=== PATIENT | female | born 1975 | race Two or more races ===

== ENCOUNTER 2024-11-18 11:05 | Day surgery (SDC) | payer MEDICAID, SELFPAY ==
[2024-11-17 14:42] VITALS: BMI 31.2
[2024-11-17 18:01] LABS: HCG Qualitative,Urine Negative
[2024-11-18] VITALS (14 sets, daily range): BP systolic 103–135; BP diastolic 58–92; PULSE 60–90; RESP 14–22; TEMP 36.6–36.7; O2SAT 92–100; BMI 30.8
[2024-11-18] MEDS: SODIUM CHLORIDE 0.9% 500 ML 500 ML 20 ML IV (13:55)
[2024-11-18] MEDS: DiphenhydrAMINE INJ 50 MG/ML VIAL 25 MG IV (14:03)
[2024-11-18] MEDS: fentaNYL CIT INJ 50 mCg/ML AMP 2ML (ASD USE ONLY) 25 MCG IV (14:20)
[2024-11-18] MEDS: MIDAZOLAM INJ 1 MG/ML VIAL 2 ML (ASD USE ONLY) 2 MG IV (14:20)
== END 2024-11-18 15:15 | disposition home or self-care (01) ==
PROVIDERS: PCP Family Medicine; Referring Provider Internal Medicine Gastroenterology; Visit Provider Internal Medicine Gastroenterology
PROC: (CPT 43239; principal; 2024-11-18 11:30)
PROC: 0DBE8ZX Excision of Large Intestine, Via Natural or Artificial Opening Endoscopic, Diagnostic (ICD-10-PCS; CPT 45380; 2024-11-18 11:30)
DX: K64.1 Second degree hemorrhoids (principal); K29.50 Unspecified chronic gastritis without bleeding; K31.89 Other diseases of stomach and duodenum; K63.5 Polyp of colon
CPT/HCPCS: 45380; 81025; A4649; J1200; J2250; J3010; J7040